=== PATIENT | male | born 1995 | race Caucasian/White ===

== ENCOUNTER 2018-10-08 21:08 | Emergency (ER) | payer OTHER ==
[~2018-10-08] VITALS: Ht 165.1 cm; Wt 52.2 kg
[2018-10-08] MEDS ORDERED: NOHOMEMEDICATIONS (21:21)
[2018-10-08 21:51] VITALS: BP 118/71
== END 2018-10-08 21:52 | disposition home or self-care (01) ==
LOC: M.ERS 21:08
DX: S61.213A Laceration without foreign body of left middle finger without damage to nail, initial encounter (principal); W29.8XXA Contact with other powered hand tools and household machinery, initial encounter; Y93.89 Activity, other specified; Y92.89 Other specified places as the place of occurrence of the external cause; Y99.0 Civilian activity done for income or pay